=== PATIENT | female | born 1980 | race Caucasian/White ===

== ENCOUNTER 2018-06-15 15:52 | Observation (INO) ==
[~2018-06-15 15:52] MED LIST: KETAMINE 100 MG/1 ML - 5 ML ONE; LIDOCAINE W/ SODIUM BICARB 0.5 ML SYR ONE; LIDOCAINE W/ SODIUM BICARB 0.5 ML SYR SUBD ONE; Lactated Ringers 1,000 ML PRIMARY IV ONE; MIDAZOLAM 5 MG/1 ML ONE; Nasal Sanitizer POPSWAB ampule 3 AMP (Nozin) PREOP DOSE ENOS SCH; ceFAZolin Inj 2gm (Premix) 2 GM/50 ML BAG IV ONE; fentaNYL Inj 250 MCG/5 ML VIAL ONE
[2018-06-15] MEDS: Lactated Ringers 1,000 ML PRIMARY IV SCH ×2 (15:59→21:22)
[2018-06-15] MEDS ORDERED: DEXAMETHASONE PF 10 MG/1 ML VIAL ONE ×2 (16:56→18:28)
[2018-06-15] MEDS ORDERED: ROPIVACAINE HCL 7.5 MG/1 ML - 20 ML ONE (16:56)
[2018-06-15] MEDS ORDERED: BUPIVACAINE 0.5% W/EPI MPF -30 ML VIAL IV ONE (16:57)
[2018-06-15] MEDS ORDERED: BUPivacaine Inj 0.5% PF (5mg/ml) 30ml vial ONE (17:01)
[2018-06-15] MEDS ORDERED: EPINEPHrine Inj (1:1,000) 30mg/30ml vial ONE (17:01)
[2018-06-15] MEDS ORDERED: PROPOFOL 10 MG/1 ML (200 MG/20 ML) VIAL IV ONE ×2 (17:30→20:32)
--- NOTE | 2018-06-15 18:11 | CRNA.PROCE ---
Nerve Block Documentation - - Safety Measures: Time Out Taken, Site Verified - - Type of Nerve Block Used: Right Femoral Nerve Block Position for Nerve Block: Supine Moniters Used During Block: EKG, SPO2, NIBP Oxygen Supplemented: Yes Sedation Used - Enter Amount in Comment Field [ANES.SEDAT]: Midazolam (mg): Yes (5), Fentanyl (mcg): Yes (150 mcgs) Skin Prep Used: ChloroPrep (twice) Draped: No Technique: Nerve Stimulator Nerve Block Needle Used: 100 mm ProBlk II Stimulation Hz: 1 Stimulation Staring mA: 1.8 Stimulation Ending mA: 0.6 Local Anesthetic - Enter Amt in Comment Field [ANES.LOCNB]: 0.5 % Bupivicaine with Epinephrine 1:200,000 (mL): Yes (15 ml), Other Anesthetic: Yes (0.7% ropivicaine 15 ml) Additives to Nerve Blocks: Dexamethasone (mg): Yes (10) - - PreOp Block : Time In: 17:00 PreOp Block : Time Out: 17:15 Anesthesia Time - Other Weight: 94.347 kg Height: 5 ft 5 in Body Mass Index (BMI): 34.6
--- NOTE | 2018-06-15 18:14 | CRNA.PROCE ---
Nerve Block Documentation - - Safety Measures: Time Out Taken, Site Verified - - Type of Nerve Block Used: Right Sciatic Nerve Block Position for Nerve Block: Lateral Sedation Used - Enter Amount in Comment Field [ANES.SEDAT]: Midazolam (mg): Yes (5), Fentanyl (mcg): Yes (150) Skin Prep Used: ChloroPrep (Twice) Draped: No Technique: Nerve Stimulator Nerve Block Needle Used: 100 mm ProBlk II Stimulation Hz: 1 Stimulation Staring mA: 1.8 Stimulation Ending mA: 0.6 Local Anesthetic - Enter Amt in Comment Field [ANES.LOCNB]: 0.5 % Bupivicaine with Epinephrine 1:200,000 (mL): Yes (10), Other Anesthetic: Yes (5 ml of 0.7% Ropivicaine ) - - PreOp Block : Time In: 17:00 PreOp Block : Time Out: 17:15 Anesthesia Time - Block Time PreOp Block : Time In: 17:00 PreOp Block : Time Out: 17:15 - Other Weight: 94.347 kg Height: 5 ft 5 in Body Mass Index (BMI): 34.6
--- NOTE | 2018-06-15 18:15 | CRNA.PROGR ---
Anesthesia Time - Procedure/Recovery Time Start Date: 06/15/18 End Date: 06/15/18 Anesthesia : Time In: 17:32 Anesthesia : Time Out: 20:45 Anesthesia : Total Time: 193 - Block Time PreOp Block : Time In: 17:00 PreOp Block : Time Out: 17:15 - Total Anesthesia Time Total Anesthesia Time (minutes): 193 - Other Weight: 94.347 kg Height: 5 ft 5 in Body Mass Index (BMI): 34.6 Anesthesia Type: General Anesthesia : LMA PostOp Pain Management: Femoral (Single Injection)
--- NOTE | 2018-06-15 18:16 | CRNA.PROGR ---
Post Anesthesia Phase II - Post Anesthesia Phase II Patient Stable and Discharged To: Phase II Care Assumed By Surgeon: Waldo Washburn MD Temperature: 97.1 F Pulse Rate: 80 Respiratory Rate: 20 Blood Pressure: 120/81 Pulse Ox: 97 Total Shady Score at Discharge: 9 Post Anesthesia Discharge Criteria Met: Yes
[2018-06-15] MEDS ORDERED: ONDANSETRON 4 MG/2 ML VIAL ONE (18:30)
[2018-06-15] MEDS ORDERED: Lactated Ringers 1,000 ML PRIMARY IV ONE ×2 (18:34→21:03)
[2018-06-15] MEDS ORDERED: Sodium Chloride 0.9% vial 10 ML ONE (19:42)
[2018-06-15] MEDS ORDERED: BACITRACIN 50,000 UNIT VIAL IRRIG ONE (19:42)
[2018-06-15] MEDS ORDERED: BUPivacaine Liposome/PF (Exparel) Inj 20ml vial INFIL ONE (19:59)
[2018-06-15] MEDS ORDERED: KETOROLAC 15 MG/1 ML VIAL IVP PRN (20:50)
[2018-06-15] MEDS ORDERED: fentaNYL Inj 100 MCG/2 ML VIAL IVP PRN (20:50)
[2018-06-15] MEDS: HYDROmorphone 2 MG/1 ML IVP PRN ×2 (20:50→20:55)
[2018-06-15] MEDS ORDERED: LIDOCAINE W/ SODIUM BICARB 0.5 ML SYR SUBD PRN (20:50)
[2018-06-15] MEDS ORDERED: KETOROLAC 30 MG/1 ML VIAL IVP ONE (20:50)
[2018-06-15] MEDS ORDERED: KETOROLAC 30 MG/1 ML VIAL ONE (20:52)
[2018-06-15] MEDS ORDERED: HYDROmorphone 2 MG/1 ML ONE (20:53)
--- NOTE | 2018-06-15 20:53 | ORTHO.OP ---
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 #4 decision of large bone spurs from the trochlea and lateral femur #5 examination of right knee under anesthesia and also under fluoroscopy prior to incision. Surgeon: Waldo Washburn MD Java Systems Analyst: Kristal Denise Anesthesia Provider: Angelica Beach CRNA Anesthesia Type: General, Regional Estimated Blood Loss (mL): 75 Fluids: 1900 mL crystalloid Pathology: Anaerobic and aerobic cultures submitted. Also synovial fluid submitted for synvasure testing Findings: See operative note Complications: None Operative Summary: Extubated and taken to recovery in stable condition.
[2018-06-15] MEDS ORDERED: PROMETHAZINE 25 MG/1 ML VIAL IM ONE ×2 (21:05→21:08)
[2018-06-15] MEDS ORDERED: diphenhydrAMINE 25 MG CAPSULE PO PRN (22:17)
[2018-06-15] MEDS ORDERED: CALCIUM CARBONATE 500 MG (TUMS) CHEWABLE TABLET PO PRN (22:17)
[2018-06-15] MEDS ORDERED: IBUPROFEN 400 MG TABLET PO PRN (22:17)
[2018-06-15] MEDS ORDERED: CELECOXIB 200 MG CAPSULE PO PRN (22:17)
[2018-06-15] MEDS ORDERED: MAG HYDROX/AL HYDROX/SIMETH 30 ML SUSP PO PRN (22:17)
[2018-06-15] MEDS ORDERED: ACETAMINOPHEN 325 MG TABLET PO PRN (22:17)
[2018-06-15] MEDS ORDERED: MORPHINE SULFATE 2 MG/1 ML IVP PRN (22:17)
[2018-06-15] MEDS ORDERED: Ondansetron ODT Tab 8 MG TAB PO PRN (22:17)
[2018-06-15] MEDS ORDERED: Prochlorperazine Tab 10 MG TAB PO PRN (22:17)
[2018-06-15] MEDS ORDERED: BISACODYL 10 MG SUPPOSITORY RECTAL PRN (22:17)
[2018-06-15] MEDS ORDERED: BISACODYL 5 MG TABLET PO PRN (22:17)
[2018-06-15] MEDS: DOCUSATE 100 MG CAPSULE PO SCH (22:45)
[2018-06-15] MEDS: D5-1/2NS + 20mEq KCL 1,000 ML PRIMARY IV SCH (22:46)
[2018-06-15] MEDS ORDERED: KETOROLAC 30 MG/1 ML VIAL IVP PRN (22:54)
[2018-06-16] MEDS: ceFAZolin Inj 2 GM in Sodium Chloride 0.9% 100 ML IV SCH ×3 (01:26→18:46)
[2018-06-16 05:41] LABS: Hematocrit [HCT] 39.2 % (37.0-47.0); MEAN CORPUSCULAR HEMOGLOBIN 29.6 PG (27-31); MEAN CORPUSCULAR HGB CONC 33.2 g/dL (33-37); MEAN CORPUSCULAR VOLUME 89.3 FL (81-99); MEAN PLATELET VOLUME 10.7 FL (7.4-12.2); RED BLOOD COUNT 4.39 10^6/uL (4.20-5.40)
[2018-06-16 06:02] LABS: BLOOD UREA NITROGEN 11 mg/dL (7-22); BUN/CREATININE RATIO 18.33 (6-20)
[2018-06-16] MEDS: DOCUSATE 100 MG CAPSULE PO SCH (08:30)
[2018-06-16] MEDS ORDERED: SCOPOLAMINE HYDROBROMIDE 1.5 MG - 1 EACH PATCH TRANSDERM SCH (08:30)
--- NOTE | 2018-06-16 08:58 | ORTHO.PROG ---
Last Taken Vital Signs: Vital Signs - Last Taken Temperature 97.5 F 06/16/18 06:34 Pulse Rate 90 06/16/18 06:34 Respiratory Rate 18 06/16/18 06:34 Blood Pressure 126/79 06/16/18 06:34 Pulse Ox 94 06/16/18 06:34 Subjective: Patient is doing fairly well as morning. Not having much pain. Block is still working. Had some issues with nausea. Has not yet taken any narcotic. Objective: Vital signs stable patient afebrile. Right lower extremity is in a knee immobilizer. Minimal drainage. Hemoglobin and hematocrit are stable. Assessment: Impression: Doing well postop day 1 from polyethylene exchange and extensive debridement of synovium. Plan: Plan is to do some physical therapy working on weightbearing with crutches. I will check on her later this afternoon possible discharge. If she needs one more day, which can certainly arrange for that.
[2018-06-16] MEDS ORDERED: ASPIRIN EC 81 MG TABLET PO SCH (09:00)
[2018-06-16] MEDS: D5-1/2NS + 20mEq KCL 1,000 ML PRIMARY IV SCH (10:02)
[2018-06-16] MEDS: oxyCODONE/APAP 7.5/325 Tab 1 TAB TAB PO PRN ×3 (10:15→20:03)
[2018-06-16] MEDS: ONDANSETRON 4 MG/2 ML VIAL IVP PRN ×2 (11:02→20:03)
--- NOTE | 2018-06-16 12:46 | OTI REPORT ---
Thank you for the referral of Sarha Loja. She was seen on 06/16/18 for an occupational therapy inpatient evaluation status post right uni knee replacement. SUBJECTIVE: The patient is a 37-year-old female. The patient currently reports a pain level of 4/10 on the verbal analog scale (0=no pain, 10=worst pain). She states she is feeling okay, but a little dizzy this morning. The patient does report that she would like assistance to get dressed this morning. She states she has been up to ambulate to the bathroom already this morning. The patient lives at home with her and two children who are two and four. She does have a tub/shower combo within her house. She has two to three steps to get inside the home. Once inside the home there are 20 stairs to get to the bedroom of her house. The patient does report that she is still numb from the surgical block. PAST MEDICAL HISTORY: Past medical history can be found in the patient's medical record. OBJECTIVE FINDINGS: General observations: The patient was sitting up in recliner chair upon the therapist's arrival. The patient does have an immobilizer in place secondary to a femoral block. Activities of daily living: The patient does report that she has a mental retardation nurse at home as she has had several knee surgeries in the past. She feels confident in her ability to perform lower extremity dressing tasks independently. The patient was assisted in performing lower extremity dressing with minimal assistance to include donmariam shorts. The patient's drain did come loose during lower extremity dressing task and nursing was notified. Nursing came into the room and assisted the patient in putting the drain back in place. Pain: Following lower and upper extremity dressing tasks, the patient did report that her pain increased. Transfers: The patient did try to stand up without the immobilizer on while the therapist was getting brace ready and her leg did give way. The therapist assisted the patient to sit back down in the chair. Immobilizer will need to be worn at this time until femoral block wears off. ASSESSMENT: Rehab potential is good. Problem List: Decreased ability to complete lower extremity dressing Decreased ability to complete functional transfers Decreased standing activity tolerance/balance Occupational Therapy Goals: To be met by discharge from inpatient: Patient will demonstrate the ability to complete lower extremity dressing tasks independently. Patient will demonstrate the ability to complete all functional transfers to include toilet/shower/chair with contact guard assist only for safety. Patient will demonstrate the ability to complete standing grooming tasks x10 minutes with no losses of balance without difficulty. TREATMENT PLAN: Patient will be seen B.I.D during the week and one time per day over the weekend as an inpatient to address the above goals and objectives. INITIAL TREATMENT: Treatment today consisted of the initial evaluation activities only. ABI
--- NOTE | 2018-06-16 17:24 | ORTHO.PROG ---
Last Taken Vital Signs: Vital Signs - Last Taken Temperature 98 F 06/16/18 16:13 Pulse Rate 65 06/16/18 16:13 Respiratory Rate 18 06/16/18 16:13 Blood Pressure 123/71 06/16/18 16:13 Pulse Ox 96 06/16/18 16:13 Subjective: Patient is doing fairly well. Has taken very little pain medication. Therapy feels that she would benefit from staying the night and going home tomorrow after a.m. therapy. Apparently the patient's brace was removed sometime today while attempting to put on pants. She fell to a chair bending her knee to 90. Not completely clear whether it was more than that. I spoke with the occupational therapist who told me that she didn't think was past 90. She has some increased pain thereafter. She is doing a little bit better now. Objective: Vital signs are stable. Right knee immobilizers in place. Assessment: Impression: Doing well postop day 1 from polyethylene exchange right unicompartmental knee Plan: Plan is to see her in the morning and change her dressing. Put a Saurabh stocking on her that time. Probably send her out on Xarelto daily for 10 days. Likely discharge her tomorrow she is doing well.
[2018-06-17] MEDS: DOCUSATE 100 MG CAPSULE PO SCH ×2 (01:43→07:48)
[2018-06-17 05:18] LABS: Hematocrit [HCT] 37.3 % (37.0-47.0); Hemoglobin [HGB] 12.1 g/dL (12.0-16.0); MEAN CORPUSCULAR HEMOGLOBIN 29.5 PG (27-31); MEAN CORPUSCULAR HGB CONC 32.4 g/dL (33-37); MEAN PLATELET VOLUME 10.7 FL (7.4-12.2); RED BLOOD COUNT 4.1 10^6/uL (4.20-5.40)
[2018-06-17 05:32] LABS: BLOOD UREA NITROGEN 17 mg/dL (7-22); BUN/CREATININE RATIO 21.25 (6-20)
[2018-06-17] MEDS: oxyCODONE/APAP 7.5/325 Tab 1 TAB TAB PO PRN (07:47)
--- NOTE | 2018-06-17 07:49 | ORTHO.PROG ---
Last Taken Vital Signs: Vital Signs - Last Taken Temperature 97.4 F 06/17/18 07:14 Pulse Rate 70 06/17/18 07:14 Respiratory Rate 16 06/17/18 07:14 Blood Pressure 125/83 06/17/18 07:14 Pulse Ox 94 06/17/18 07:14 Subjective: Patient sitting in bed. Pain seems to be well controlled. Having a better day today. Objective: Vital signs stable patient afebrile. Right knee drain became disconnected 2 hours ago. I removed the drain from the knee. Took down the dressings. Incis ion is clean and dry. The arthrotomy incision seems to be intact as near as I can feel. Patient is able to do straight leg raise. Place new gauze and applied a MISHA hose. Assessment: Impression: Doing well following revision unicompartmental knee arthroplasty. Patient also had an extensive synovectomy for metallosis Plan: Plan: Is to send her home after her morning therapy session. We'll send her out on Xarelto daily for 10 days as well as Percocet for pain. Follow-up in my office next Wednesday.
[2018-06-17] MEDS ORDERED: Rivaroxaban Tab 10 MG TAB PO SCH (09:00)
--- NOTE | 2018-06-17 12:32 | PTI REPORT ---
Thank you for the referral of Sarah Loja. She was seen on 06/16/18 for an inpatient evaluation status post right uni knee replacement. SUBJECTIVE: The patient is a 37-year-old female who underwent a clean up of a previous unilateral knee replacement that she had done in 2011 and replacement of the spacer of her knee. The patient states that she has a pain level of 2/10 on the verbal analog scale (0=no pain, 10=worst pain) at this time. She still is not able to feel her right thigh secondary to her femoral block that she had and she does have the knee immobilizer in place. The patient states that she is a little nervous to get up and move as she did stand earlier without the knee immobilizer in place and her knee gave way slightly. Since then she has had her immobilizer in place and we did discuss that the immobilizer is to be on anytime she is up and moving around until she does have quadriceps control. The patient verbalizes understanding of that. The patient lives here in [place] with her . She does have two younger children. The patient states that she has a few stairs into her home. She does have 20 stairs up to the bedroom, but she is planning on staying on the main floor right after going home from surgery in order to not have to perform all of the stairs. The patient does have crutches as well that she has used during previous knee surgeries that she has had. The patient states she has been a little dizzy when she has been transferring. PAST MEDICAL HISTORY: Past medical history can be found in the patient's medical record. OBJECTIVE FINDINGS: General observations: The patient was alert and oriented to setting upon PT arrival. The patient was sitting up in chair with a knee immobilizer in place on her right knee. Transfers: The patient was able to perform a sit to stand transfer from the chair with contact guard assist x1 for safety. She did need to stand for approximately one minute due to the patient being dizzy. We did provide contact guard assist. The patient had her axillary crutches at the same time. Ambulation: Once her dizziness subsided, the patient was able to ambulate with axillary crutches and weight-bearing as tolerated on the right side x150 feet. ASSESSMENT: The patient has good rehab potential. Problem List: Pain in the right knee Decreased range of motion of the right knee Decreased strength Short-Term Goals: To be met by discharge from inpatient: Patient will be able to transfer from bed to stand safely and independently. Patient will be able to ambulate with axillary crutches at least 150 feet safely and independently. Patient will be able to ascend and descend one flight of stairs safely and independently with use of crutches. Long-Term Goals: To be met following discharge from inpatient: Patient will attend outpatient physical therapy for post op knee care. TREATMENT PLAN: Patient will be seen B.I.D during the week and one time per day over the weekend as an inpatient to address the above goals and objectives. INITIAL TREATMENT: Treatment today consisted of the initial evaluation followed by one unit of functional activity and one unit of therapeutic exercise. Once the patient was down in therapy we did put a hot pack on the posterior aspect of the knee. The patient was instructed in quad sets, heel slides, straight leg raises which required assistance, short arc quads with assistance, and seated long arc quads. The patient also performed sit to stand transfers and box step ups with knee immobilizer in place. The patient then ambulated 150 feet back to her room where she was left with call light within reach and alarm set. ABI
--- NOTE | 2018-06-17 16:21 | PT AM DAY ---
Diagnosis : Right Uni Knee AM - Physical Therapy S: The patient states she is doing much better this morning and is hoping to be discharged from the hospital after our AM PT session. O: Treatment today consisted of the patient receiving an application of moist heat pack x15 minutes including set up to the posterior aspect of the knee. The patient was instructed in therapeutic exercises including quad sets, heel slides, straight leg raises with quad set, short arc quads, and four way ankle exercises. The patient then performed sit to stand transfers x10 with knee immobilizer in place as the patient doesn't feel that her quads are back completely and feels more comfortable ambulating and in weight-bearing positions with the knee immobilizer on. [facility] by assist x1 for safety and her knee immobilizer and crutches. The patient was instructed on how to properly ascend and descend the stairs with the hand railing on the left. The patient was able to complete this activity with stand by assist x1 for safety and without need for verbal cueing. The patient received manual therapy in the form of stretching for knee flexion and extension in seated and supine positions. The patient then ambulated back up to her room x150 feet. A: The patient has met all goals for therapy and is safe to discharge home. We did discuss continuing with quad sets and heel slides at home and once she feels that her quadriceps muscle is doing better, she is to start weaning out of the knee immobilizer brace with weight-bearing positions. P: Patient will be discharged from therapy as goals are met. BRENDAD
--- NOTE | 2018-06-17 16:28 | OT.PROG ---
Progress Note Progress Note: S: pt stated she wanted to go home today. O: pt completed dressing and showering tasks independently with use of parking lot manager and sock aide. pt completed functional ambulation with crutches x 190' independently. pt was transferred to PT for further therapy. A: pt is independent in all ADLs and tolerated session well. P: continue POC
[2018-06-24 17:15] VITALS: BP 125/83; RESP 16; TEMP 97.4; O2SAT 94
== END 2018-06-17 10:31 | disposition home or self-care (01) ==
LOC: OR 15:52 → MED/SURG 15:52
PROVIDERS: ADMIT Orthopaedic Surgery; ATTEND Orthopaedic Surgery